=== PATIENT | female | born 1945 | race African-American/Black ===

== ENCOUNTER 2016-07-24 06:51 | Day surgery (SDC) | payer MEDICARE ==
[~2016-07-24] VITALS: Ht 162.6 cm; Wt 70.3 kg
[~2016-07-24 06:51] MED LIST: ATENOLOL25 MG OR; ATENOLOL50 MG PO; BACTRIM DS1 TAB PO; BENAZEPRIL HCL40 MG PO; BENAZEPRIL5 M1 OR; GLYCRON3 MG OR; HYDROCHLOROT25 MG PO; LISINOPRIL20 M1 OR; MAXZIDE-2537.5 MG/TA PO; MEDDOSEPAK OR; METFORMIN1000 MG OR; NAPROSYN500 MG PO; NIFEDIPINE30 MG PO; PROCARDIA XL60 MG OR; SB ASPIRIN325 M1 OR; SIMVASTATIN80 MG OR
[2016-07-24] MEDS ORDERED: ATORVASTATIN (07:01)
[2016-07-24 09:47] VITALS: BP 135/71
== END 2016-07-24 09:47 | disposition home or self-care (01) ==
LOC: ENDO 06:51
PROVIDERS: ATTEND Internal Medicine Gastroenterology
PROC: 0DJD8ZZ Inspection of Lower Intestinal Tract, Via Natural or Artificial Opening Endoscopic (ICD-10-PCS; principal; 2016-07-24)
DX: K57.30 Diverticulosis of large intestine without perforation or abscess without bleeding (principal); R14.0 Abdominal distension (gaseous); K64.4 Residual hemorrhoidal skin tags; K64.8 Other hemorrhoids; K44.9 Diaphragmatic hernia without obstruction or gangrene; K29.70 Gastritis, unspecified, without bleeding; I10 Essential (primary) hypertension; E11.9 Type 2 diabetes mellitus without complications; I25.10 Atherosclerotic heart disease of native coronary artery without angina pectoris; E78.00 Pure hypercholesterolemia, unspecified; Z98.61 Coronary angioplasty status; Z86.010 Personal history of colon polyps

== ENCOUNTER 2016-09-14 02:06 | Emergency (ER) | payer MEDICARE ==
[~2016-09-14] VITALS: Ht 162.6 cm; Wt 73.0 kg
[~2016-09-14 02:06] MED LIST changes: +ATORVASTATIN; +ATORVASTATIN CA40 MG PO; +BENAZEPRIL40 M1 PO; +EC ASPIRIN325 MG PO; +GLYBURID MCR6 MG PO; +METFORMIN500 M2 PO; +NIFEDIPINE ER90 MG PO
[2016-09-14 02:38] LABS: HEMATOCRIT 36.5 % (37.0-47.0); HEMOGLOBIN 11.7 g/dl (12.0-16.0); IMMATURE GRANULOCYTES 0.3 % (0.0-1.0); MEAN CELL VOLUME 89.5 fL CALC (80.0-100.0); MEAN CORPUSCULAR HGB 28.7 pG CALC (26.0-32.0); MEAN CORPUSCULAR HGB CONC 32.1 g/L CALC (32.0-36.0); NEUT# 3.17 thou/uL (2.00-7.15); RED BLOOD COUNT 4.08 mill/uL (4.20-5.60); RED CELL DISTRI WIDTH 15.5 % (11.5-15.5)
[2016-09-14 02:54] LABS: ACT PARTIAL THROMBO TIME 21.5 SECONDS (20.0-32.5); PROTHROMBIN TIME 10.4 SECONDS (9.0-12.5)
[2016-09-14 03:21] LABS: ALBUMIN 3.6 g/dL (3.2-5.0); ALKALINE PHOSPHATASE 57 u/l (38-126); AMYLASE 38 u/l (30-110); ANION GAP 12 (6-22 (CALC)); BILIRUBIN, TOTAL 0.4 mg/dL (0.0-1.4); BUN 23 mg/dL (8-23); BUN/CREATININE RATIO 26 (12-20 (CALC)); CALCIUM 9.4 mg/dL (8.4-10.2); CARBON DIOXIDE 23 mmol/l (22-30); CHLORIDE 110 mmol/l (95-108); CREATININE 0.9 mg/dL (0.5-1.0); ETHYL ALCOHOL 0 mg/dl (0-30); GFR > 60 ML/MIN (>=60 (CALC)); GFR FOR AFR.AMER. > 60 ML/MIN (>=60 (CALC)); GLUCOSE 153 mg/dL (82-115); LIPASE 108 u/l (23-300); POTASSIUM 3.6 mmol/l (3.5-5.1); SGOT/AST 15 u/l (9-36); SGPT/ALT 28 u/l (11-66); SODIUM 141 mmol/l (137-146); TOTAL PROTEIN 6.7 g/dL (6.3-8.2)
[2016-09-14 04:47] VITALS: BP 106/69
== END 2016-09-14 04:49 | disposition short-term general hospital (02) ==
LOC: ED 02:06
PROVIDERS: Emergency Medicine
DX: K62.5 Hemorrhage of anus and rectum (principal); I10 Essential (primary) hypertension; E11.9 Type 2 diabetes mellitus without complications; E78.00 Pure hypercholesterolemia, unspecified; R94.31 Abnormal electrocardiogram [ECG] [EKG]
CPT/HCPCS: S0164

== ENCOUNTER 2016-09-17 06:00 | Emergency (ER) | payer MEDICARE ==
[~2016-09-17] VITALS: Ht 162.6 cm; Wt 70.0 kg
[2016-09-17 06:57] LABS: HEMATOCRIT 26.7 % (37.0-47.0); HEMOGLOBIN 8.6 g/dl (12.0-16.0); IMMATURE GRANULOCYTES 0.5 % (0.0-1.0); MEAN CELL VOLUME 90.2 fL CALC (80.0-100.0); MEAN CORPUSCULAR HGB 29.1 pG CALC (26.0-32.0); MEAN CORPUSCULAR HGB CONC 32.2 g/L CALC (32.0-36.0); NEUT# 5.83 thou/uL (2.00-7.15); RED BLOOD COUNT 2.96 mill/uL (4.20-5.60); RED CELL DISTRI WIDTH 15.7 % (11.5-15.5)
[2016-09-17 07:09] LABS: ALBUMIN 3.8 g/dL (3.2-5.0); ALKALINE PHOSPHATASE 59 u/l (38-126); AMYLASE 42 u/l (30-110); ANION GAP 14 (6-22 (CALC)); BILIRUBIN, TOTAL 0.4 mg/dL (0.0-1.4); BUN 7 mg/dL (8-23); BUN/CREATININE RATIO 10 (12-20 (CALC)); CALCIUM 9.4 mg/dL (8.4-10.2); CARBON DIOXIDE 23 mmol/l (22-30); CHLORIDE 109 mmol/l (95-108); CREATININE 0.8 mg/dL (0.5-1.0); GFR > 60 ML/MIN (>=60 (CALC)); GFR FOR AFR.AMER. > 60 ML/MIN (>=60 (CALC)); GLUCOSE 156 mg/dL (82-115); LIPASE 100 u/l (23-300); POTASSIUM 3.5 mmol/l (3.5-5.1); SGOT/AST 16 u/l (9-36); SGPT/ALT 28 u/l (11-66); SODIUM 142 mmol/l (137-146); TOTAL PROTEIN 6.8 g/dL (6.3-8.2)
[2016-09-17 07:16] LABS: ACT PARTIAL THROMBO TIME 20.1 SECONDS (20.0-32.5); PROTHROMBIN TIME 10.6 SECONDS (9.0-12.5)
[2016-09-17] MEDS ORDERED: TRAVATAN0.0041 OU (07:46)
[2016-09-17 09:50] VITALS: BP 153/79
== END 2016-09-17 09:53 | disposition short-term general hospital (02) ==
LOC: ED 06:00
PROVIDERS: Emergency Medicine
DX: K92.1 Melena (principal); R10.9 Unspecified abdominal pain; I10 Essential (primary) hypertension; E11.9 Type 2 diabetes mellitus without complications; E78.00 Pure hypercholesterolemia, unspecified

== ENCOUNTER 2016-12-08 20:24 | Inpatient (IN) | payer MEDICARE ==
[~2016-12-08] VITALS: Ht 162.6 cm; Wt 68.1 kg
[~2016-12-08 20:24] MED LIST changes: +TRAVATAN0.0041 OU
--- NOTE | 2016-12-08 20:41 | NUR ---
PT ARRIVES BY EMS WITH COMPLAINT OF RAPID HR, OVER 200 PER EMS. HR NOW UP TO 130s. PT IS AMBULATORY TO BR, PROVIDES URINE SPECIMEN. OTHER VSS. NO COMPLAINT OF SHORTNESS OF BREATH, CHEST PAIN, OR DIZZINESS.
[2016-12-08] MEDS ORDERED: ASPIRIN 81 LOW81 MG PO (20:45)
[2016-12-08 21:17] LABS: HEMATOCRIT 30.3 % (37.0-47.0); HEMOGLOBIN 9.4 g/dl (12.0-16.0); IMMATURE GRANULOCYTES 0.4 % (0.0-1.0); MEAN CELL VOLUME 76.7 fL CALC (80.0-100.0); MEAN CORPUSCULAR HGB 23.8 pG CALC (26.0-32.0); NEUT# 7.99 thou/uL (2.00-7.15); RED BLOOD COUNT 3.95 mill/uL (4.20-5.60)
[2016-12-08 21:19] LABS: URINE BILIRUBIN - DIPSTICK NEGATIVE (NEGATIVE); URINE BLOOD DIPSTICK TRACE-INTACT (NEGATIVE); URINE CLARITY CLEAR; URINE COLOR YELLOW; URINE GLUCOSE - DIPSTICK NEGATIVE (NEGATIVE); URINE KETONE NEGATIVE (NEGATIVE); URINE LEUK ESTERASE NEGATIVE (NEGATIVE); URINE NITRITE - DIPSTICK NEGATIVE (Negative); URINE PH 6.5 (4.5-8.0); URINE PROTEIN - DIPSTICK NEGATIVE (NEG-TRACE); URINE SPECIFIC GRAVITY 1.025; URINE UROBILINOGEN - DIPSTICK 0.2 E.U./dL (0.2)
[2016-12-08 21:23] LABS: BARBITURATES NEGATIVE (NEGATIVE); COCAINE NEGATIVE (NEGATIVE); METHADONE NEGATIVE (NEGATIVE); OXCYCODONE NEGATIVE (NEGATIVE); TETRAHYDROCANNABIONOL NEGATIVE (NEGATIVE); TRICYLIC ANTIDEPRESSANTS NEGATIVE (NEGATIVE)
[2016-12-08 21:28] LABS: ACT PARTIAL THROMBO TIME 21.1 SECONDS (20.0-32.5); ALBUMIN 4.2 g/dL (3.2-5.0); ALKALINE PHOSPHATASE 91 u/l (38-126); ANION GAP 16 (6-22 (CALC)); BILIRUBIN, TOTAL 0.7 mg/dL (0.0-1.4); BUN 11 mg/dL (8-23); BUN/CREATININE RATIO 15 (12-20 (CALC)); CALCIUM 9.2 mg/dL (8.4-10.2); CARBON DIOXIDE 21 mmol/l (22-30); CHLORIDE 109 mmol/l (95-108); CREATININE 0.7 mg/dL (0.5-1.0); ETHYL ALCOHOL 0 mg/dl (0-30); GFR > 60 ML/MIN (>=60 (CALC)); GFR FOR AFR.AMER. > 60 ML/MIN (>=60 (CALC)); GLUCOSE 237 mg/dL (82-115); INTERNATIONAL NORMALIZED RATIO 0.9 RATIO (0.7-1.3); POTASSIUM 3.6 mmol/l (3.5-5.1); PROTHROMBIN TIME 10.2 SECONDS (9.0-12.5); SGOT/AST 35 u/l (9-36); SGPT/ALT 36 u/l (11-66); SODIUM 143 mmol/l (137-146); TOTAL PROTEIN 8.1 g/dL (6.3-8.2)
--- NOTE | 2016-12-08 21:29 | NUR ---
PT PROVIDED CARDIZEM 10 MG ORDERED BY EDP FOR HR MID 120s, NOW 115-125.
[2016-12-08 21:39] LABS: MYOGLOBIN 27 ng/mL (0 - 62)
--- NOTE | 2016-12-08 22:04 | NUR ---
PT PROVIDED 20 MG IVP CARDIZEM PER EDP ORDER. HR 118.
--- NOTE | 2016-12-08 22:06 | NUR ---
RECEIVED PT AWAKE AND ALERT. P116 NO C/O CHEST PAIN AT THIS TIME.
--- NOTE | 2016-12-08 23:05 | NUR ---
PT WITH NO C/O PAIN. CALL BESS IN REACH.
--- NOTE | 2016-12-09 00:02 | NUR ---
MED SURG CALLED FOR REPORT, NURSE TO RETURN CALL.
--- NOTE | 2016-12-09 00:16 | NUR ---
REPORT TO [facility]/SURG.
--- NOTE | 2016-12-09 00:20 | NUR ---
PT TO RM 261 WITH ADDY CARRILLO, ON TELE. PT COND STABLE.
--- NOTE | 2016-12-09 00:20 | NUR ---
PATIENT ARRIVED TO THE FLOOR IN STABLE CONDITION VIA STRETCHER ACCOMPANIED BY ED STAFF. PATIENT SETTLED TO BED, WEIGHED, AND ORIENTED TO ROOM CALL SYSATEM. EDUCATE PATIENT ON THE NEED TO CALL FOR ASSISTANCE OOB. PT VERBALISED UNDERSTANDING. BED IN LOW POSITION, CALL LIGHT IN REACH.
--- NOTE | 2016-12-09 01:00 | NUR ---
PT'S BLOOD SUGAR 281. PT'S ASYMPTOMATIC. CALLED DR MORA, PHONE RINGS THEN WENT TO BUSY.
--- NOTE | 2016-12-09 01:30 | NUR ---
CALLED DR MORA, PHONE RANG THEN WENT TO BUSY.
[2016-12-09 04:00] VITALS: BP 120/68
--- NOTE | 2016-12-09 04:00 | NUR ---
NO APPARENT ACUTE CHANGES NOTED IN PATIENT'S CONDITION
--- NOTE | 2016-12-09 06:00 | NUR ---
NOTIFIED DR MORA OF PATIENT'S BLOOD SUGAR. ORDERS RECEIVED TO START LOW DOSE NOVOLOG SLIDING SCALE COVERAGE.
[2016-12-09 07:27] VITALS: BP 110/68
--- NOTE | 2016-12-09 07:27 | NUR ---
REPORT RECEIVED FROM NIGHT NURSE, PT.IN BED WITH LIGHTS OUT, AWOKE TO MY ENTERING THE ROOM. V/S ASSESSED AND PT.MEDICATED FOR BS 210. ASSISTED PT.UP TO RESTROOM. PT.DENIES ANY OTHER NEEDS AND HAS CALL LIGHT WITHIN REACH, INSTRUCTED TO CALL IF ANY NEEDS ARISE
--- NOTE | 2016-12-09 08:24 | NUR ---
PT.UPRIGHT IN BED WATCHING TV., MEDICATED WITH AM MEDICATIONS. NEURO'S INTACT, LUNG SOUNDS ARE CLEAR, NO SKIN ISSUES, STRONG PERIPH PULSES, DENIES ANY PAIN OR DISCOMFORT, PT.LOCX3. PT. ADVISED TO CALL IF SHE NEEDS TO GET UP OR IF ANY NEEDS ARISE.
[2016-12-09 11:32] VITALS: BP 123/73
[2016-12-09] MEDS ORDERED: ATENOLOL50 MG PO (13:21)
[2016-12-09] MEDS ORDERED: ADALAT CC/P30 MG/TA1 PO (13:21)
--- NOTE | 2016-12-09 15:10 | NUR ---
PT.OFF THE FLOOR DISCHARGED, SELF AMBULATORY IN GOOD CONDITION. IV HAS BEEN REMOVED INTACT, SITE APPEARS HEALTHY, MEDICINE WORKER REMOVED.
[2016-12-09 15:39] LABS: CHOLESTEROL HDL RATIO 2.4 (<4.4 (CALC)); MAGNESIUM 1.4 mg/dL (1.6-2.3)
== END 2016-12-09 15:10 | disposition home or self-care (01) | DRG 310 ==
LOC: ED 20:24 → ED-I 21:14 → ED 23:36 → MS2 23:37
PROVIDERS: Emergency Medicine; Nurse Practitioner Family; ADMIT Internal Medicine; ATTEND Internal Medicine
DX: I47.1 Supraventricular tachycardia (principal); E11.9 Type 2 diabetes mellitus without complications; I11.9 Hypertensive heart disease without heart failure; I08.1 Rheumatic disorders of both mitral and tricuspid valves; E78.5 Hyperlipidemia, unspecified; D50.9 Iron deficiency anemia, unspecified; I25.10 Atherosclerotic heart disease of native coronary artery without angina pectoris; K57.30 Diverticulosis of large intestine without perforation or abscess without bleeding; E66.9 Obesity, unspecified; Z68.25 Body mass index [BMI] 25.0-25.9, adult; Z98.61 Coronary angioplasty status; Z79.84 Long term (current) use of oral hypoglycemic drugs
CPT/HCPCS: J1650; J1756

== ENCOUNTER 2017-02-09 19:18 | Emergency (ER) | payer MEDICARE ==
[~2017-02-09] VITALS: Ht 162.6 cm; Wt 66.8 kg
[~2017-02-09 19:18] MED LIST changes: +ADALAT CC/P30 MG/TA1 PO; +ASPIRIN 81 LOW81 MG PO
[2017-02-09] MEDS ORDERED: GLUCOTROL10 MG PO (19:41)
[2017-02-09] MEDS ORDERED: SLOW MAG (19:41)
[2017-02-09] MEDS ORDERED: POT CHLORIDE10 ME5 PO (19:43)
[2017-02-09 19:46] LABS: HEMATOCRIT 41.2 % (37.0-47.0); HEMOGLOBIN 12.5 g/dl (12.0-16.0); IMMATURE GRANULOCYTES 0.2 % (0.0-1.0); MEAN CELL VOLUME 80.8 fL CALC (80.0-100.0); MEAN CORPUSCULAR HGB 24.5 pG CALC (26.0-32.0); MEAN CORPUSCULAR HGB CONC 30.3 g/L CALC (32.0-36.0); NEUT# 3.23 thou/uL (2.00-7.15); RED BLOOD COUNT 5.1 mill/uL (4.20-5.60); RED CELL DISTRI WIDTH 24.7 % (11.5-15.5)
[2017-02-09 19:47] LABS: URINE BILIRUBIN - DIPSTICK NEGATIVE (NEGATIVE); URINE BLOOD DIPSTICK TRACE-LYSED (NEGATIVE); URINE COLOR YELLOW; URINE GLUCOSE - DIPSTICK 100 mg/dL (NEGATIVE); URINE KETONE NEGATIVE (NEGATIVE); URINE LEUK ESTERASE NEGATIVE (NEGATIVE); URINE NITRITE - DIPSTICK NEGATIVE (Negative); URINE PH 7.5 (4.5-8.0); URINE PROTEIN - DIPSTICK NEGATIVE (NEG-TRACE); URINE SPECIFIC GRAVITY 1.025; URINE UROBILINOGEN - DIPSTICK 0.2 E.U./dL (0.2)
[2017-02-09 19:48] LABS: URINE CLARITY CLEAR
[2017-02-09 19:59] LABS: ALBUMIN 4.6 g/dL (3.2-5.0); ALKALINE PHOSPHATASE 100 u/l (38-126); ANION GAP 18 (6-22 (CALC)); BILIRUBIN, TOTAL 0.3 mg/dL (0.0-1.4); BUN 20 mg/dL (8-23); BUN/CREATININE RATIO 25 (12-20 (CALC)); CALCIUM 10.6 mg/dL (8.4-10.2); CARBON DIOXIDE 23 mmol/l (22-30); CHLORIDE 110 mmol/l (95-108); CREATININE 0.8 mg/dL (0.5-1.0); GFR > 60 ML/MIN (>=60 (CALC)); GFR FOR AFR.AMER. > 60 ML/MIN (>=60 (CALC)); GLUCOSE 195 mg/dL (82-115); POTASSIUM 4.6 mmol/l (3.5-5.1); SGOT/AST 113 u/l (9-36); SGPT/ALT 66 u/l (11-66); SODIUM 147 mmol/l (137-146); TOTAL PROTEIN 8.8 g/dL (6.3-8.2)
[2017-02-09 20:03] LABS: INTERNATIONAL NORMALIZED RATIO 0.9 RATIO (0.7-1.3); PROTHROMBIN TIME 10.3 SECONDS (9.0-12.5)
[2017-02-09 20:10] LABS: MYOGLOBIN 32 ng/mL (0 - 62)
[2017-02-09] MEDS ORDERED: TENORMIN PO (20:25)
[2017-02-09 21:32] VITALS: BP 169/85
== END 2017-02-09 21:26 | disposition home or self-care (01) ==
LOC: ED 19:18
PROVIDERS: Emergency Medicine
DX: I47.1 Supraventricular tachycardia (principal); I10 Essential (primary) hypertension; E11.9 Type 2 diabetes mellitus without complications; Z91.14 Patient's other noncompliance with medication regimen

== ENCOUNTER 2017-02-27 09:01 | Emergency (ER) | payer MEDICARE ==
[~2017-02-27] VITALS: Ht 162.6 cm; Wt 68.0 kg
[~2017-02-27 09:01] MED LIST changes: +GLUCOTROL10 MG PO; +POT CHLORIDE10 ME5 PO; +SLOW MAG; +TENORMIN PO
[2017-02-27 09:59] LABS: HEMATOCRIT 38.8 % (37.0-47.0); HEMOGLOBIN 12.3 g/dl (12.0-16.0); IMMATURE GRANULOCYTES 0.2 % (0.0-1.0); MEAN CELL VOLUME 80.8 fL CALC (80.0-100.0); MEAN CORPUSCULAR HGB 25.6 pG CALC (26.0-32.0); MEAN CORPUSCULAR HGB CONC 31.7 g/L CALC (32.0-36.0); NEUT# 3.34 thou/uL (2.00-7.15); RED BLOOD COUNT 4.8 mill/uL (4.20-5.60); RED CELL DISTRI WIDTH 23.3 % (11.5-15.5)
[2017-02-27 10:16] LABS: INFLUENZA A NONE DETECTED (NONE DETECT); INFLUENZA B NONE DETECTED (NONE DETECT)
[2017-02-27 10:23] LABS: ANION GAP 17 (6-22 (CALC)); BUN 12 mg/dL (8-23); BUN/CREATININE RATIO 13 (12-20 (CALC)); CALCIUM 9.8 mg/dL (8.4-10.2); CARBON DIOXIDE 22 mmol/l (22-30); CHLORIDE 104 mmol/l (95-108); CREATININE 0.9 mg/dL (0.5-1.0); GFR > 60 ML/MIN (>=60 (CALC)); GFR FOR AFR.AMER. > 60 ML/MIN (>=60 (CALC)); GLUCOSE 115 mg/dL (82-115); SODIUM 138 mmol/l (137-146)
[2017-02-27] MEDS ORDERED: TAM75CAP PO (10:41)
[2017-02-27] MEDS ORDERED: ZPAK PO (10:41)
[2017-02-27 10:58] VITALS: BP 152/89
== END 2017-02-27 10:59 | disposition home or self-care (01) ==
LOC: ED 09:01
PROVIDERS: Family Medicine
DX: J06.9 Acute upper respiratory infection, unspecified (principal); I10 Essential (primary) hypertension; E11.9 Type 2 diabetes mellitus without complications

== ENCOUNTER 2017-04-05 01:08 | Emergency (ER) | payer MEDICARE ==
[~2017-04-05] VITALS: Ht 162.6 cm; Wt 66.8 kg
[~2017-04-05 01:08] MED LIST changes: +TAM75CAP PO; +ZPAK PO
[2017-04-05 02:19] LABS: HEMATOCRIT 40.4 % (37.0-47.0); HEMOGLOBIN 12.7 g/dl (12.0-16.0); IMMATURE GRANULOCYTES 0.3 % (0.0-1.0); MEAN CELL VOLUME 84.5 fL CALC (80.0-100.0); MEAN CORPUSCULAR HGB 26.6 pG CALC (26.0-32.0); MEAN CORPUSCULAR HGB CONC 31.4 g/L CALC (32.0-36.0); NEUT# 3.71 thou/uL (2.00-7.15); RED BLOOD COUNT 4.78 mill/uL (4.20-5.60); RED CELL DISTRI WIDTH 18.6 % (11.5-15.5)
[2017-04-05 02:42] LABS: ALBUMIN 4.4 g/dL (3.2-5.0); ALKALINE PHOSPHATASE 125 u/l (38-126); ANION GAP 17 (6-22 (CALC)); BILIRUBIN, TOTAL 0.5 mg/dL (0.0-1.4); BUN 16 mg/dL (8-23); BUN/CREATININE RATIO 20 (12-20 (CALC)); CARBON DIOXIDE 25 mmol/l (22-30); CHLORIDE 109 mmol/l (95-108); CREATININE 0.8 mg/dL (0.5-1.0); GFR > 60 ML/MIN (>=60 (CALC)); GFR FOR AFR.AMER. > 60 ML/MIN (>=60 (CALC)); LIPASE 319 u/l (23-300); POTASSIUM 3.7 mmol/l (3.5-5.1); SGOT/AST 26 u/l (9-36); SGPT/ALT 65 u/l (11-66); SODIUM 148 mmol/l (137-146); TOTAL PROTEIN 7.9 g/dL (6.3-8.2)
[2017-04-05 02:53] LABS: MYOGLOBIN 27 ng/mL (0 - 62)
[2017-04-05] MEDS ORDERED: PREVACID30 M1 PO (05:51)
[2017-04-05] MEDS ORDERED: ZOFRAN ODT4 MG PO (05:51)
[2017-04-05] MEDS ORDERED: ULTRAM50 M1 PO (05:51)
[2017-04-05 06:26] VITALS: BP 125/66
== END 2017-04-05 06:26 | disposition home or self-care (01) ==
LOC: ED 01:08
PROVIDERS: Emergency Medicine
DX: K80.80 Other cholelithiasis without obstruction (principal); E11.9 Type 2 diabetes mellitus without complications; I10 Essential (primary) hypertension; R07.9 Chest pain, unspecified

== ENCOUNTER 2018-01-08 10:18 | Emergency (ER) | payer MEDICARE ==
[~2018-01-08] VITALS: Ht 162.6 cm; Wt 68.0 kg
[~2018-01-08 10:18] MED LIST changes: +CLONIDINE0.1 MG PO; +PREVACID30 M1 PO; +ULTRAM50 M1 PO; +ZOFRAN ODT4 MG PO
[2018-01-08] MEDS ORDERED: METFORMIN500 MG PO (10:28)
[2018-01-08] MEDS ORDERED: LIPITOR40 M1 PO (10:28)
[2018-01-08] MEDS ORDERED: NIFEDIPINE60 MG PO (10:28)
[2018-01-08] MEDS ORDERED: MAXZIDE-2537.5 MG/TA PO (10:29)
[2018-01-08] MEDS ORDERED: ATENOLOL50 MG PO (10:29)
[2018-01-08] MEDS ORDERED: MEDDOSEPAK PO (12:07)
[2018-01-08] MEDS ORDERED: TORADOL PO (12:07)
[2018-01-08 12:11] VITALS: BP 119/69
== END 2018-01-08 12:25 | disposition home or self-care (01) ==
LOC: ED 10:18
DX: M25.551 Pain in right hip (principal)

== ENCOUNTER 2018-11-02 17:48 | Emergency (ER) | payer MEDICARE ==
[~2018-11-02] VITALS: Ht 162.6 cm; Wt 70.0 kg
[~2018-11-02 17:48] MED LIST changes: +LIPITOR40 M1 PO; +MEDDOSEPAK PO; +METFORMIN500 MG PO; +NIFEDIPINE60 MG PO; +TORADOL PO
[2018-11-02] MEDS ORDERED: LANTUS100 UNIT/M SC (18:11)
[2018-11-02] MEDS ORDERED: XALATAN0.005 % IR (18:14)
[2018-11-02 19:13] LABS: HEMATOCRIT 38.5 % (37.0-47.0); HEMOGLOBIN 11.8 g/dl (12.0-16.0); IMMATURE GRANULOCYTES 0.3 % (0.0-5.0); MEAN CORPUSCULAR HGB 28.1 pG CALC (26.0-32.0); MEAN CORPUSCULAR HGB CONC 30.6 g/L CALC (32.0-36.0); NEUT# 3.38 thou/uL (2.00-7.15); RED BLOOD COUNT 4.2 mill/uL (4.20-5.60); RED CELL DISTRI WIDTH 17.2 % (11.5-15.5)
[2018-11-02 19:15] LABS: MEAN CELL VOLUME 91.7 fL CALC (80.0-100.0)
[2018-11-02 19:21] LABS: ALBUMIN 3.7 g/dL (3.2-5.0); ALKALINE PHOSPHATASE 68 u/l (38-126); ANION GAP 14 (6-22 (CALC)); BILIRUBIN, TOTAL 0.5 mg/dL (0.0-1.4); BUN 22 mg/dL (8-23); BUN/CREATININE RATIO 23 (12-20 (CALC)); CARBON DIOXIDE 23 mmol/l (22-30); CHLORIDE 106 mmol/l (95-108); GFR 54 ML/MIN (>=60 (CALC)); GFR FOR AFR.AMER. > 60 ML/MIN (>=60 (CALC)); POTASSIUM 4.1 mmol/l (3.5-5.1); SGOT/AST 26 u/l (9-36); SODIUM 139 mmol/l (137-146); TOTAL PROTEIN 7.3 g/dL (6.3-8.2)
[2018-11-02 21:00] VITALS: BP 165/72
== END 2018-11-02 21:30 | disposition home or self-care (01) ==
LOC: ED 17:48
PROVIDERS: Emergency Medicine
DX: E11.649 Type 2 diabetes mellitus with hypoglycemia without coma (principal); I10 Essential (primary) hypertension; Z79.4 Long term (current) use of insulin

== ENCOUNTER 2018-12-02 07:31 | Emergency (ER) | payer MEDICARE ==
[~2018-12-02] VITALS: Ht 162.6 cm; Wt 72.7 kg
[~2018-12-02 07:31] MED LIST changes: +LANTUS100 UNIT/M SC; +XALATAN0.005 % IR
[2018-12-02 08:02] LABS: HEMATOCRIT 36.1 % (37.0-47.0); HEMOGLOBIN 11.4 g/dl (12.0-16.0); MEAN CELL VOLUME 90.9 fL CALC (80.0-100.0); MEAN CORPUSCULAR HGB 28.7 pG CALC (26.0-32.0); MEAN CORPUSCULAR HGB CONC 31.6 g/L CALC (32.0-36.0); NEUT# 3.94 thou/uL (2.00-7.15); RED BLOOD COUNT 3.97 mill/uL (4.20-5.60)
[2018-12-02 08:27] LABS: ANION GAP 13 (6-22 (CALC)); BUN 20 mg/dL (8-23); BUN/CREATININE RATIO 22 (12-20 (CALC)); CARBON DIOXIDE 25 mmol/l (22-30); CHLORIDE 108 mmol/l (95-108); CREATININE 0.9 mg/dL (0.5-1.0); GFR > 60 ML/MIN (>=60 (CALC)); GFR FOR AFR.AMER. > 60 ML/MIN (>=60 (CALC)); POTASSIUM 3.9 mmol/l (3.5-5.1); SODIUM 141 mmol/l (137-146)
[2018-12-02] MEDS ORDERED: LASIX 40 MG TAB40 MG PO ×2 (08:44→09:24)
[2018-12-02] MEDS ORDERED: ASPIRIN ADULT L81 M2 PO (08:48)
[2018-12-02] MEDS ORDERED: NIFEDIPINE ER30 M1 PO (08:49)
[2018-12-02] MEDS ORDERED: METFORMIN500 M2 PO (08:50)
[2018-12-02] MEDS ORDERED: BENAZEPRIL40 M1 PO (08:50)
[2018-12-02] MEDS ORDERED: MAXZIDE-2537.5 MG/TA PO (08:51)
[2018-12-02] MEDS ORDERED: PIOGLITAZONE HC30 MG PO (08:52)
[2018-12-02] MEDS ORDERED: ATENOLOL100 M1 PO (08:53)
[2018-12-02] MEDS ORDERED: ATORVASTATIN CA40 MG PO (08:53)
[2018-12-02] MEDS ORDERED: CLONIDINE0.1 MG PO (08:54)
[2018-12-02 09:14] VITALS: BP 178/84
== END 2018-12-02 09:14 | disposition home or self-care (01) ==
LOC: ED 07:31
PROVIDERS: Family Medicine
DX: I11.0 Hypertensive heart disease with heart failure (principal); I50.9 Heart failure, unspecified; E11.9 Type 2 diabetes mellitus without complications; Z79.4 Long term (current) use of insulin

== ENCOUNTER 2019-10-17 05:51 | Observation (INO) | payer MEDICARE ==
[~2019-10-17] VITALS: Ht 162.6 cm; Wt 74.5 kg
[~2019-10-17 05:51] MED LIST changes: +ASPIRIN ADULT L81 M2 PO; +ATENOLOL100 M1 PO; +LASIX 40 MG TAB40 MG PO; +NIFEDIPINE ER30 M1 PO; +PIOGLITAZONE HC30 MG PO
--- NOTE | 2019-10-17 05:51 | NUR ---
PT TO ROOM 12 BY EMS. NO IV STARTED. BS 120.
--- NOTE | 2019-10-17 06:20 | NUR ---
BLOOD DRAWN AND EKG AND COVID SWAB COMPLETED. IV ATTEMPTED X 3 WITHOUT SUCCESS
[2019-10-17 06:28] LABS: HEMATOCRIT 38.7 % (37.0-47.0); HEMOGLOBIN 11.8 g/dl (12.0-16.0); IMMATURE GRANULOCYTES 0.6 % (0.0-5.0); MEAN CELL VOLUME 90.8 fL CALC (80.0-100.0); MEAN CORPUSCULAR HGB 27.7 pG CALC (26.0-32.0); MEAN CORPUSCULAR HGB CONC 30.5 g/dL CAL (32.0-36.0); NEUT# 5.08 thou/uL (2.00-7.15); RED BLOOD COUNT 4.26 mill/uL (4.20-5.60); RED CELL DISTRI WIDTH 14.6 % (11.5-15.5)
[2019-10-17 06:48] LABS: ALBUMIN 3.9 g/dL (3.2-5.0); ALKALINE PHOSPHATASE 71 u/l (38-126); AMYLASE 64 u/l (30-110); ANION GAP 11 (6-22 (CALC)); BILIRUBIN, TOTAL 0.5 mg/dL (0.0-1.4); BUN 20 mg/dL (8-23); BUN/CREATININE RATIO 21 (12-20 (CALC)); CARBON DIOXIDE 25 mmol/l (22-30); CHLORIDE 107 mmol/l (95-108); CREATININE 0.9 mg/dL (0.5-1.0); GFR > 60 ML/MIN (>=60 (CALC)); GFR FOR AFR.AMER. > 60 ML/MIN (>=60 (CALC)); LIPASE 174 u/l (23-300); POTASSIUM 4.2 mmol/l (3.5-5.1); SGOT/AST 25 u/l (9-36); SODIUM 138 mmol/l (137-146); TOTAL PROTEIN 7.4 g/dL (6.3-8.2)
--- NOTE | 2019-10-17 06:51 | NUR ---
REPORT TO CRYSTAL. IV ATTEMPTS UNSUCCESSFUL. DR AWARE. WILL WAIT ON CHEMISTRY TO DECIDE ON FLUIDS. PT GETTING UP TO BR TO OBTAIN URINE SAMPLE.
--- NOTE | 2019-10-17 06:55 | NUR ---
RECIEVED CARE OF PATIENT. PT AO X 3. SKIN PINK WARM AND DRY. ASSISTED TO COMMODE. URINE SAMPLE OBTAINED AND SENT TO LAB. PTS AT BEDSIDE
[2019-10-17 07:00] LABS: MYOGLOBIN 32 ng/mL (0 - 62)
[2019-10-17 07:09] LABS: URINE BILIRUBIN - DIPSTICK NEGATIVE (NEGATIVE); URINE BLOOD DIPSTICK NEGATIVE (NEGATIVE); URINE COLOR YELLOW; URINE GLUCOSE - DIPSTICK NEGATIVE (NEGATIVE); URINE KETONE NEGATIVE (NEGATIVE); URINE LEUK ESTERASE SMALL (NEGATIVE); URINE NITRITE - DIPSTICK NEGATIVE (Negative); URINE PH 7.5 (4.5-8.0); URINE PROTEIN - DIPSTICK NEGATIVE (NEG-TRACE); URINE UROBILINOGEN - DIPSTICK 0.2 E.U./dL (0.2)
[2019-10-17 07:18] LABS: URINE BACTERIA FEW hpf; URINE SQUAMOUS EPITHELIAL CELL FEW EPI/hpf (0-FEW)
--- NOTE | 2019-10-17 07:20 | NUR ---
22G IV STARTED IN LEFT HAND. PT MEDICATED FOR NAUSEA. IV FLUIDS INFUSING
--- NOTE | 2019-10-17 07:42 | NUR ---
REPORT GIVEN TO ARACELI DALYPATTERNMAKER PLASTER AND PLASTIC
--- NOTE | 2019-10-17 08:05 | NUR ---
PT TRANSPORTED VIA STRETCHER TELEMETRY IN PLACE TO [facility]
[2019-10-17 08:23] VITALS: BP 108/63
--- NOTE | 2019-10-17 10:17 | NUR ---
PT ARRIVES TO ROOM 260 VIA WHEELCHAIR FROM ER ACCOMPANIED BY CRYSTAL DALY. PT IS ALERT, ORIENTED X 3, AMBULATORY IN ROOM. PT ORIENTED TO CALL BESS, BED CONTROLS. BSC AT BEDSIDE. NO DISTRESS, NO COMPLAINT. MEAL TRAY PROVIDED UPON ARRIVAL.
[2019-10-17 10:50] VITALS: BP 126/75
[2019-10-17 14:40] VITALS: BP 124/65
--- NOTE | 2019-10-17 16:13 | NUR ---
PT SEEN AT REST IN THE BED WITHOUT COMPLAINT OR EVIDENCE OF DISTRESS. PT IS AMBULATORY IN ROOM WITH STEADY GAIT.
[2019-10-17 19:34] VITALS: BP 127/74
--- NOTE | 2019-10-17 19:34 | NUR ---
PT. RESTING IN BED WITH NO DISTRESS NOTED; DENIES NEEDS/PAIN. UPDATED ON POC; VERBALIZES UNDERSTANDING. EDUCATED ON MEDS AND GIVEN PER EMAR. PT. REPORTS NO MORE BM'S SINCE THE ONE AT HOME THIS AM. ASSESSMENT COMPLETED.GINA JANE TO BLE. IV SITE PATENT AND ORDERED IVF INFUSING WELL. ENCOURAGED TO CALL FOR ANY NEEDS. TELEMETRY IN PLACE. CALL LIGHT IS IN REACH.
[2019-10-17 23:15] VITALS: BP 154/87
--- NOTE | 2019-10-17 23:15 | NUR ---
VSS. NO DISTRESS NOTED;DENIES NEEDS/PAIN. ENCOURAGED TO CALL FOR ANY NEEDS. CALL LIGHT IS IN REACH.
--- NOTE | 2019-10-18 03:00 | NUR ---
PT. RESTING IN BED WITH NO DISTRESS NOTED; DENIES NEEDS/PAIN. CALL LIGHT IS IN REACH. WILL CONTINUE TO MONITOR.
[2019-10-18 03:31] VITALS: BP 155/96
[2019-10-18 07:20] VITALS: BP 154/93
--- NOTE | 2019-10-18 07:20 | NUR ---
PT LAYING IN BED. A&O X3. NO DISTRESS NOTED. PT DENIES ANY PAIN AT THIS TIME. NO OTHER NEEDS. ASSESSMENT COMPLETED. DISCUSSED POC. CALL LIGHT IN REACH. CONTINUE TO MONITOR.
[2019-10-18 08:38] LABS: HEMATOCRIT 40.9 % (37.0-47.0); HEMOGLOBIN 12.5 g/dl (12.0-16.0); MEAN CELL VOLUME 90.5 fL CALC (80.0-100.0); MEAN CORPUSCULAR HGB 27.7 pG CALC (26.0-32.0); MEAN CORPUSCULAR HGB CONC 30.6 g/dL CAL (32.0-36.0); RED BLOOD COUNT 4.52 mill/uL (4.20-5.60); RED CELL DISTRI WIDTH 14.7 % (11.5-15.5)
[2019-10-18 08:46] LABS: BUN 15 mg/dL (8-23); BUN/CREATININE RATIO 18 (12-20 (CALC)); CARBON DIOXIDE 24 mmol/l (22-30); CHLORIDE 107 mmol/l (95-108); CREATININE 0.8 mg/dL (0.5-1.0); GFR > 60 ML/MIN (>=60 (CALC)); GFR FOR AFR.AMER. > 60 ML/MIN (>=60 (CALC)); MAGNESIUM 1.5 mg/dL (1.6-2.3); POTASSIUM 3.8 mmol/l (3.5-5.1); SODIUM 138 mmol/l (137-146)
[2019-10-18 09:41] LABS: ANION GAP 11 (6-22 (CALC))
[2019-10-18] MEDS ORDERED: KEFLEX500 MG PO (09:47)
[2019-10-18 10:21] LABS: CALCULATED LDLCHOLESTEROL 54 mg/dL (62-129 (CALC)); CHOLESTEROL HDL RATIO 2.5 (<4.4 (CALC)); HDL CHOLESTEROL 51 mg/dL (>=40); TOTAL CHOLESTEROL 125 mg/dl (0-199); TOTAL TRIGLYCERIDES 99 mg/dl (30-149); VLDL CHOLESTROL 20 mg/dl (0-48 (CALC))
[2019-10-18 10:30] VITALS: BP 162/88
--- NOTE | 2019-10-18 11:48 | NUR ---
Discharge instructions given. Patient verbalizes understanding of same. Discharged in stable condition via Wheelchair to Home accompanied by this automobile service writer and family member. All belongings sent with pt.
== END 2019-10-18 11:40 | disposition home or self-care (01) ==
LOC: ED 05:51 → ED-I 07:20 → ED 07:27 → MS2 07:38
PROVIDERS: Emergency Medicine; Nurse Practitioner; ADMIT Internal Medicine; ATTEND Internal Medicine
DX: R94.31 Abnormal electrocardiogram [ECG] [EKG] (principal); R61 Generalized hyperhidrosis; N39.0 Urinary tract infection, site not specified; K59.00 Constipation, unspecified; I10 Essential (primary) hypertension; E11.9 Type 2 diabetes mellitus without complications; E78.5 Hyperlipidemia, unspecified; B96.20 Unspecified Escherichia coli [E. coli] as the cause of diseases classified elsewhere; Z98.61 Coronary angioplasty status; Z79.84 Long term (current) use of oral hypoglycemic drugs; Z20.828 Contact with and (suspected) exposure to other viral communicable diseases
CPT/HCPCS: G0378; J1650

== ENCOUNTER 2020-03-16 17:43 | Emergency (ER) | payer MEDICARE ==
[~2020-03-16] VITALS: Ht 162.6 cm; Wt 70.9 kg
[~2020-03-16 17:43] MED LIST changes: +KEFLEX500 MG PO
[2020-03-16 19:15] LABS: HEMATOCRIT 43.2 % (37.0-47.0); HEMOGLOBIN 13.9 g/dl (12.0-16.0); IMMATURE GRANULOCYTES 0.4 % (0.0-5.0); MEAN CELL VOLUME 87.4 fL CALC (80.0-100.0); MEAN CORPUSCULAR HGB 28.1 pG CALC (26.0-32.0); MEAN CORPUSCULAR HGB CONC 32.2 g/dL CAL (32.0-36.0); NEUT# 3.44 thou/uL (2.00-7.15); RED BLOOD COUNT 4.94 mill/uL (4.20-5.60); RED CELL DISTRI WIDTH 14.4 % (11.5-15.5)
[2020-03-16 19:28] LABS: PROTHROMBIN TIME 10.2 SECONDS (9.0-12.5)
[2020-03-16 19:32] LABS: ALBUMIN 4.1 g/dL (3.2-5.0); BILIRUBIN, TOTAL 0.7 mg/dL (0.0-1.4); CREATININE 1.4 mg/dL (0.5-1.0); TOTAL PROTEIN 8.4 g/dL (6.3-8.2)
[2020-03-16 19:37] LABS: POTASSIUM 3.5 mmol/l (3.5-5.1)
[2020-03-16 19:55] LABS: D-DIMER 2.16 mg/L (0.19-0.60)
[2020-03-16] MEDS ORDERED: TRAMADOL HYDROC50 MG PO (22:26)
[2020-03-16 23:45] VITALS: BP 140/79
--- NOTE | 2020-03-17 10:31 | NUR ---
RECEIVED CONSULT FOR BAMLANIVIMAB. CALLED PT @ 0800 AND 1030, LM. WILL TRY TO SCHEDULE PT FOR SATURDAY 03/18
--- NOTE | 2020-03-18 13:58 | NUR ---
HAVE YET TO HEAR BACK FROM PT RE: RAMYA
== END 2020-03-16 23:45 | disposition home or self-care (01) ==
LOC: ED 17:43
DX: L29.9 Pruritus, unspecified (principal); T40.425A Adverse effect of tramadol, initial encounter; U07.1 COVID-19; I10 Essential (primary) hypertension; E11.9 Type 2 diabetes mellitus without complications; E78.00 Pure hypercholesterolemia, unspecified; Z79.84 Long term (current) use of oral hypoglycemic drugs

== ENCOUNTER 2020-03-18 23:35 | Emergency (ER) | payer MEDICARE ==
[~2020-03-18] VITALS: Ht 162.6 cm; Wt 71.0 kg
[~2020-03-18 23:35] MED LIST changes: +TRAMADOL HYDROC50 MG PO
[2020-03-19] MEDS ORDERED: BENADRYL 50MG C50 MG PO (00:15)
[2020-03-19 00:26] VITALS: BP 102/64
== END 2020-03-19 00:35 | disposition home or self-care (01) ==
LOC: ED 23:35
DX: L29.9 Pruritus, unspecified (principal); T40.425A Adverse effect of tramadol, initial encounter; I10 Essential (primary) hypertension; E11.9 Type 2 diabetes mellitus without complications; E78.00 Pure hypercholesterolemia, unspecified; Z79.84 Long term (current) use of oral hypoglycemic drugs

== ENCOUNTER 2020-09-10 07:44 | Observation (INO) | payer MEDICARE ==
[~2020-09-10] VITALS: Ht 162.6 cm; Wt 69.0 kg
[2020-09-10] VITALS (8 sets, daily range): BP systolic 130–167; BP diastolic 77–98
[~2020-09-10 07:44] MED LIST changes: +BENADRYL 50MG C50 MG PO
--- NOTE | 2020-09-10 07:44 | NUR ---
PT TO ROOM VIA EMS; DEFIB PADS IN PLACE; PT AOX3; STATED CP HAS RESOLVED;
[2020-09-10] MEDS ORDERED: MAGNESIUM 250 M1 TAB (08:00)
[2020-09-10 08:23] LABS: HEMATOCRIT 41.2 % (37.0-47.0); HEMOGLOBIN 13.2 g/dl (12.0-16.0); IMMATURE GRANULOCYTES 0.4 % (0.0-5.0); MEAN CORPUSCULAR HGB 28.8 pG CALC (26.0-32.0); NEUT# 4.19 thou/uL (2.00-7.15); RED BLOOD COUNT 4.58 mill/uL (4.20-5.60); RED CELL DISTRI WIDTH 14.3 % (11.5-15.5)
[2020-09-10 08:36] LABS: ACT PARTIAL THROMBO TIME 22.4 SECONDS (20.0-32.5); PROTHROMBIN TIME 10.1 SECONDS (9.0-12.5)
[2020-09-10 08:38] LABS: ALBUMIN 4.2 g/dL (3.2-5.0); ALKALINE PHOSPHATASE 96 u/l (38-126); BUN 30 mg/dL (8-23); BUN/CREATININE RATIO 23 (12-20 (CALC)); CHLORIDE 102 mmol/l (95-108); CREATININE 1.3 mg/dL (0.5-1.0); GFR 40 ML/MIN (>=60 (CALC)); GFR FOR AFR.AMER. 48 ML/MIN (>=60 (CALC)); LIPASE 227 u/l (23-300); POTASSIUM 3.9 mmol/l (3.5-5.1); SGOT/AST 20 u/l (9-36); SODIUM 136 mmol/l (137-146); TOTAL PROTEIN 8.4 g/dL (6.3-8.2)
[2020-09-10 08:39] LABS: ANION GAP 17 (6-22 (CALC)); BILIRUBIN, TOTAL 0.5 mg/dL (0.0-1.4); CARBON DIOXIDE 21 mmol/l (22-30)
--- NOTE | 2020-09-10 09:00 | NUR ---
PT RESTING, NO CP OR SOB
--- NOTE | 2020-09-10 09:55 | NUR ---
PT RESTING QUIETLY, CALL LIGHT IN REACH AND VSS
[2020-09-10] MEDS ORDERED: XALATAN0.005 % OU (11:12)
[2020-09-10] MEDS ORDERED: NIFEDIPINE60 M1 PO (11:12)
--- NOTE | 2020-09-10 12:01 | NUR ---
PT IS SITTING QUIETLY IN BED, NO COMPLAINTS
[2020-09-10] MEDS ORDERED: LANTUS SOL100 UNIT/M SC (12:16)
--- NOTE | 2020-09-10 12:57 | NUR ---
CALL RECEIVED FROM LAB FOR CRITICAL TROPONIN VALUE @ 0.329 LILIBETH LOAN COORDINATOR NOTIFIED, ADVISED WILL COME AND EVAL PT. NO NEW ORDERS RECEIVED.
--- NOTE | 2020-09-10 13:06 | NUR ---
NO COMPLAINTS OF CHEST PAIN, PT RELAXED AND COMFORTABLE
--- NOTE | 2020-09-10 14:30 | NUR ---
PT SITTING IN BED RESTING, NO COMPLAINTS, GIVEN BOTTLE OF WATER BUT REFUSING FOOD AT THE MOMENT
--- NOTE | 2020-09-10 16:00 | NUR ---
PT ON REST ROOM MAID, VSS, NO COMPLAINTS
--- NOTE | 2020-09-10 17:49 | NUR ---
REPORT REC FROM Jenni GRANGER RN
--- NOTE | 2020-09-10 17:52 | NUR ---
GAVE REPORT TO ANN RN, PT AOX3, NO COMPLAINTS, VSS AND NAD PT PLACED ON MONITOR TO TAKE TO FLOOR
--- NOTE | 2020-09-10 18:19 | NUR ---
PT ARRIVED VIA STRETCHER ACCOMPANIED BY Pooja DAVIS RN. PT A&O X4. NO DISTRESS NOTED. PT DENIES ANY CP AT THIS TIME. CURRENTLY SR ON MONITOR WITH A RATE OF 69. #22 LW WITH IVF INFUSING WITH NS @75 ML/HR. ORIENTED PT TO ROOM, CALL LIGHT LEFT WITHIN REACH.
--- NOTE | 2020-09-10 18:20 | NUR ---
Admission Note Report Given to: ADDY CLARK Transported by: Wheelchair X Stretcher Transported with: X Nurse Transporter X Patent IV O2 X Chicken Raiser Location: X ICU MS2
--- NOTE | 2020-09-10 20:00 | NUR ---
awake. denies distress. lunchroom monitor shows sinus rhythm. #22 lt wrist. ns infusing @ 75cchr. history obtained per pt & old cahrt. oriented to room. fall precautions cont. voided per bsc. beth well.
--- NOTE | 2020-09-10 22:00 | NUR ---
eyes closed. no distress. traffic monitor specialist shows sinus rhythm hr 68.
[2020-09-11] VITALS (15 sets, daily range): BP systolic 114–168; BP diastolic 63–98
--- NOTE | 2020-09-11 00:01 | NUR ---
eyes closed. no distress. studio set up worker shows sinus rhythm hr 70.
--- NOTE | 2020-09-11 02:00 | NUR ---
resting quietly. resps even & unlabored. no apparent distress. ivf infusing well.
--- NOTE | 2020-09-11 04:15 | NUR ---
lab here. blood drawn.
--- NOTE | 2020-09-11 05:54 | NUR ---
eyes closed. no distress. night monitor shows sinus rhythm hr 61.
[2020-09-11 06:20] LABS: HEMATOCRIT 40.1 % (37.0-47.0); HEMOGLOBIN 12.6 g/dl (12.0-16.0); MEAN CELL VOLUME 90.5 fL CALC (80.0-100.0); MEAN CORPUSCULAR HGB 28.4 pG CALC (26.0-32.0); MEAN CORPUSCULAR HGB CONC 31.4 g/dL CAL (32.0-36.0); RED BLOOD COUNT 4.43 mill/uL (4.20-5.60); RED CELL DISTRI WIDTH 14.4 % (11.5-15.5)
[2020-09-11 06:59] LABS: ANION GAP 11 (6-22 (CALC)); BUN 23 mg/dL (8-23); BUN/CREATININE RATIO 23 (12-20 (CALC)); CALCULATED LDLCHOLESTEROL 67 mg/dL (62-129 (CALC)); CARBON DIOXIDE 25 mmol/l (22-30); CHLORIDE 105 mmol/l (95-108); CHOLESTEROL HDL RATIO 2.9 (<4.4 (CALC)); GFR 54 ML/MIN (>=60 (CALC)); GFR FOR AFR.AMER. > 60 ML/MIN (>=60 (CALC)); HDL CHOLESTEROL 47 mg/dL (>=40); MAGNESIUM 1.7 mg/dL (1.6-2.3); POTASSIUM 4.3 mmol/l (3.5-5.1); SODIUM 137 mmol/l (137-146); TOTAL CHOLESTEROL 137 mg/dl (0-199); TOTAL TRIGLYCERIDES 117 mg/dl (30-149); VLDL CHOLESTROL 23 mg/dl (0-48 (CALC))
--- NOTE | 2020-09-11 19:57 | NUR ---
PT ARRIVED TO MED SURG UNIT VIA WC ACCOMPANIED BY ED NURSE. PT APPEARS TO BE IN STABLE CONDITION. SHE REPORTS FEELING WELL, DENIES CP/SOB/PALPATATIONS AT THIS TIME. PT DOES NOT HAVE A CLAMP CARRIER OPERATOR IN PLACE, ORDERS CHECKED AND ED NOTIFIED OF NEED FOR CLAMP CARRIER OPERATOR. NOTIFIED RECIEVING WITH ROOM NUMBER AND PT ARRIVAL TIME TO MS FLOOR.
--- NOTE | 2020-09-11 19:58 | NUR ---
PATIENT WAS TRANSFERRED VIA WHEELCHAIR TO ROOM 264 AT [facility]. ALL PT BELONGINGS TAKEN WITH PT. PATIENT DENIES CHEST PAIN, HAS NO OTHER COMPLAINTS. SR ON TELEMETRY, BP WNL. 97% ON RA, NO SOB NOTED.
--- NOTE | 2020-09-11 20:20 | NUR ---
WOLF HUNTER VISITED ED TO OBTAIN TELEMETRY, PT PLACED ON TELE AT THIS TIME.
--- NOTE | 2020-09-11 21:00 | NUR ---
PT MEDICATED ORDERS PROVIDE AND SNACK PROVIDED. IVF STARTED AT THIS TIME, ORDERS PROVIDE FOR.
[2020-09-12] VITALS: BP 120/79
--- NOTE | 2020-09-12 02:35 | NUR ---
Pt appears to be sleeping, no s/o distress noted at this time. Resp appear to be reg and non-labored.
[2020-09-12 04:15] VITALS: BP 109/71
[2020-09-12 05:59] LABS: ANION GAP 11 (6-22 (CALC)); BUN 20 mg/dL (8-23); BUN/CREATININE RATIO 21 (12-20 (CALC)); CARBON DIOXIDE 24 mmol/l (22-30); CHLORIDE 107 mmol/l (95-108); CREATININE 0.9 mg/dL (0.5-1.0); GFR > 60 ML/MIN (>=60 (CALC)); GFR FOR AFR.AMER. > 60 ML/MIN (>=60 (CALC)); MAGNESIUM 1.5 mg/dL (1.6-2.3); POTASSIUM 3.9 mmol/l (3.5-5.1); SODIUM 138 mmol/l (137-146)
--- NOTE | 2020-09-12 07:00 | NUR ---
PT REPORT RECEIVED FROM NIGHT NURSENESSA
--- NOTE | 2020-09-12 08:00 | NUR ---
PT WAS FOUND RESTING IN BED IN SEMI-WEEMS'S POSITION;PT IS A&OX3;VS AND ASSESSMENT WERE COMPLETED;PT HAS NO REPORTS OF PAIN AT THIS TIME;HEART SOUNDS ARE REGULAR IN RATE AND RHYTHM;TELE IS IN PLACE;LUNG SOUNDS ARE CLEAR;RESPIRATIONS ARE EVEN AND UNLABORED ON RA;ABDOMEN IS SOFT WITH ACTIVE BOWEL SOUNDS NOTED IN ALL QUADRANTS;#22G IV IN LW IS RUNNING NS@75ML/HR;IV SITE IS PATENT AND APPEARS FREE OF COMPLICATIONS AT THIS TIME;SAFETY PRECAUTIONS IN PLACE;CALL LIGHT WITHIN REACH;PT ENCOURAGED TO CALL WITH ANY NEEDS OR CONCERNS;WILL CONTINUE TO MONITOR.
[2020-09-12 08:56] VITALS: BP 125/77
--- NOTE | 2020-09-12 09:10 | NUR ---
AND LILIBETH MATTHEWS AT BEDSIDE DISCUSSING POC WITH PT
[2020-09-12 10:00] VITALS: BP 125/77
--- NOTE | 2020-09-12 12:00 | NUR ---
PT WAS FOUND RESTING IN BED EATING LUNCH;PT HAS NO COMPLAINTS OF PAIN AT THIS TIME;TELE IS IN PLACE;SAFETY PRECAUTIONS IN PLACE;CALL LIGHT WITHIN REACH;WILL CONTINUE TO MONITOR.
--- NOTE | 2020-09-12 15:30 | NUR ---
Discharge instructions given. Patient verbalizes understanding of same. Discharged in stable condition via Wheelchair to Home with family. All belongings sent with pt. DISCHARGE PACKET WAS GIVEN TO PT;DISCHARGE INSTRUCTIONS AND MEDICATIONS WERE EXPLAINED TO PT;PT EXPRESSED UNDERSTANDING AND HAD NO FURTHER QUESTIONS;SIGNATURE WAS OBTAINED;TELE WAS REMOVED;IV WAS REMOVED WITH NO COMPLICATIONS AND CATHETER INTACT; PT WAS TRANSPORTED TO [facility] VIA IN STABLE CONDITION ACCOMPANIED BY STAFF;ALL PT BELONGINGS WERE SENT WITH PT;PT WILL BE TRANSPORTED HOME WITH FAMILY;
== END 2020-09-12 15:30 | disposition home or self-care (01) ==
LOC: ED 07:44 → ED-I 09:50 → ED 10:01 → ICU 10:02 → ED-I 10:02 → ICU 16:56 → MS2 09-11 19:57
PROVIDERS: Nurse Practitioner; ADMIT Internal Medicine; ATTEND Internal Medicine
DX: I47.1 Supraventricular tachycardia (principal); I24.8 Other forms of acute ischemic heart disease; N17.9 Acute kidney failure, unspecified; I10 Essential (primary) hypertension; E11.9 Type 2 diabetes mellitus without complications; I25.10 Atherosclerotic heart disease of native coronary artery without angina pectoris; E78.5 Hyperlipidemia, unspecified; Z79.4 Long term (current) use of insulin; Z20.822 Contact with and (suspected) exposure to COVID-19
CPT/HCPCS: G0378; J1650; J3475

== ENCOUNTER 2020-09-16 20:26 | Observation (INO) | payer MEDICARE ==
[~2020-09-16] VITALS: Ht 162.6 cm; Wt 68.0 kg
[~2020-09-16 20:26] MED LIST changes: +LANTUS SOL100 UNIT/M SC; +MAGNESIUM 250 M1 TAB; +NIFEDIPINE60 M1 PO; +XALATAN0.005 % OU
[2020-09-16 21:08] LABS: HEMATOCRIT 42.2 % (37.0-47.0); HEMOGLOBIN 13.3 g/dl (12.0-16.0); IMMATURE GRANULOCYTES 0.2 % (0.0-5.0); MEAN CELL VOLUME 90.8 fL CALC (80.0-100.0); MEAN CORPUSCULAR HGB 28.6 pG CALC (26.0-32.0); MEAN CORPUSCULAR HGB CONC 31.5 g/dL CAL (32.0-36.0); NEUT# 5.01 thou/uL (2.00-7.15); RED BLOOD COUNT 4.65 mill/uL (4.20-5.60)
[2020-09-16 21:26] LABS: ALBUMIN 4.5 g/dL (3.2-5.0); ALKALINE PHOSPHATASE 91 u/l (38-126); BUN 23 mg/dL (8-23); BUN/CREATININE RATIO 19 (12-20 (CALC)); CARBON DIOXIDE 23 mmol/l (22-30); CHLORIDE 106 mmol/l (95-108); CREATININE 1.2 mg/dL (0.5-1.0); GFR 44 ML/MIN (>=60 (CALC)); GFR FOR AFR.AMER. 53 ML/MIN (>=60 (CALC)); SGOT/AST 25 u/l (9-36); SODIUM 142 mmol/l (137-146)
[2020-09-16 21:32] LABS: ANION GAP 16 (6-22 (CALC)); BILIRUBIN, TOTAL 0.2 mg/dL (0.0-1.4); POTASSIUM 3.1 mmol/l (3.5-5.1)
[2020-09-16 21:37] LABS: MYOGLOBIN 24 ng/mL (0 - 62)
[2020-09-16 22:41] LABS: URINE BILIRUBIN - DIPSTICK NEGATIVE (NEGATIVE); URINE BLOOD DIPSTICK NEGATIVE (NEGATIVE); URINE COLOR YELLOW; URINE GLUCOSE - DIPSTICK NEGATIVE (NEGATIVE); URINE KETONE NEGATIVE (NEGATIVE); URINE LEUK ESTERASE SMALL (NEGATIVE); URINE NITRITE - DIPSTICK NEGATIVE (Negative); URINE PROTEIN - DIPSTICK NEGATIVE (NEG-TRACE); URINE SPECIFIC GRAVITY 1.015; URINE UROBILINOGEN - DIPSTICK 0.2 E.U./dL (0.2)
[2020-09-16 22:48] LABS: URINE SQUAMOUS EPITHELIAL CELL MANY EPI/hpf (0-FEW)
[2020-09-16 23:40] VITALS: BP 142/84
[2020-09-17 04:00] VITALS: BP 134/80
[2020-09-17 07:57] VITALS: BP 153/70
[2020-09-17 09:41] LABS: ANION GAP 13 (6-22 (CALC)); BUN 21 mg/dL (8-23); BUN/CREATININE RATIO 23 (12-20 (CALC)); CARBON DIOXIDE 21 mmol/l (22-30); CHLORIDE 108 mmol/l (95-108); CREATININE 0.9 mg/dL (0.5-1.0); GFR > 60 ML/MIN (>=60 (CALC)); GFR FOR AFR.AMER. > 60 ML/MIN (>=60 (CALC)); MAGNESIUM 1.7 mg/dL (1.6-2.3); POTASSIUM 3.9 mmol/l (3.5-5.1); SODIUM 138 mmol/l (137-146)
[2020-09-17 11:33] VITALS: BP 176/100
[2020-09-17 12:45] VITALS: BP 150/85
[2020-12-19] MEDS ORDERED: KEFLEX500 MG PO (08:43)
[2020-12-19] MEDS ORDERED: ROBITUSSIN AC10 ML PO (08:43)
== END 2020-09-17 15:22 | disposition home or self-care (01) ==
LOC: ED 20:26 → ED-I 22:33 → ED 23:16 → MS2 23:16
PROVIDERS: Emergency Medicine; Nurse Practitioner; ADMIT Hospitalist; ATTEND Hospitalist
DX: R07.9 Chest pain, unspecified (principal); N17.9 Acute kidney failure, unspecified; I10 Essential (primary) hypertension; E11.9 Type 2 diabetes mellitus without complications; I25.10 Atherosclerotic heart disease of native coronary artery without angina pectoris; E78.5 Hyperlipidemia, unspecified; Z98.61 Coronary angioplasty status; Z79.4 Long term (current) use of insulin; Z20.822 Contact with and (suspected) exposure to COVID-19
CPT/HCPCS: G0378

== ENCOUNTER 2021-09-10 12:45 | Observation (INO) | payer MEDICARE ==
[~2021-09-10] VITALS: Ht 162.6 cm; Wt 65.0 kg
[2021-09-10] VITALS (22 sets, daily range): BP systolic 129–171; BP diastolic 71–94
[~2021-09-10 12:45] MED LIST changes: +ROBITUSSIN AC10 ML PO
[2021-09-10 13:20] LABS: HEMATOCRIT 40.9 % (37.0-47.0); HEMOGLOBIN 12.8 g/dl (12.0-16.0); IMMATURE GRANULOCYTES 0.2 % (0.0-5.0); MEAN CELL VOLUME 90.7 fL CALC (80.0-100.0); MEAN CORPUSCULAR HGB 28.4 pG CALC (26.0-32.0); MEAN CORPUSCULAR HGB CONC 31.3 g/dL CAL (32.0-36.0); NEUT# 2.21 thou/uL (2.00-7.15); RED BLOOD COUNT 4.51 mill/uL (4.20-5.60); RED CELL DISTRI WIDTH 15.4 % (11.5-15.5)
[2021-09-10 13:33] LABS: ALBUMIN 3.9 g/dL (3.2-5.0); ALKALINE PHOSPHATASE 73 u/l (38-126); ANION GAP 11 (6-22 (CALC)); BILIRUBIN, TOTAL 0.8 mg/dL (0.0-1.4); BUN 14 mg/dL (8-23); BUN/CREATININE RATIO 13 (12-20 (CALC)); CARBON DIOXIDE 25 mmol/l (22-30); CHLORIDE 104 mmol/l (95-108); CREATININE 1.1 mg/dL (0.5-1.0); GFR FOR AFR.AMER. 58 ML/MIN (>=60 (CALC)); GFR OTHER RACES 48 ML/MIN (>=60 (CALC)); POTASSIUM 3.3 mmol/l (3.5-5.1); SGOT/AST 24 u/l (9-36); SODIUM 137 mmol/l (137-146)
[2021-09-10] MEDS ORDERED: METFORMIN HCL1000 MG PO (15:05)
[2021-09-10] MEDS ORDERED: JARDIANCE25 MG PO (15:06)
[2021-09-10] MEDS ORDERED: TIMOLOL MALEATE0.5 % OU (15:08)
[2021-09-10] MEDS ORDERED: LATANOPROST0.005 % OU (15:08)
[2021-09-11] VITALS: BP 129/71
[2021-09-11 03:51] VITALS: BP 140/75
[2021-09-11 04:00] VITALS: BP 140/75
[2021-09-11 06:16] LABS: HEMATOCRIT 36.9 % (37.0-47.0); HEMOGLOBIN 11.7 g/dl (12.0-16.0); IMMATURE GRANULOCYTES 0.2 % (0.0-5.0); MEAN CELL VOLUME 91.6 fL CALC (80.0-100.0); MEAN CORPUSCULAR HGB CONC 31.7 g/dL CAL (32.0-36.0); NEUT# 1.81 thou/uL (2.00-7.15); RED BLOOD COUNT 4.03 mill/uL (4.20-5.60); RED CELL DISTRI WIDTH 15.4 % (11.5-15.5)
[2021-09-11 06:36] LABS: ANION GAP 11 (6-22 (CALC)); BUN 17 mg/dL (8-23); BUN/CREATININE RATIO 20 (12-20 (CALC)); CARBON DIOXIDE 23 mmol/l (22-30); CHLORIDE 107 mmol/l (95-108); CREATININE 0.8 mg/dL (0.5-1.0); GFR FOR AFR.AMER. > 60 ML/MIN (>=60 (CALC)); GFR OTHER RACES > 60 ML/MIN (>=60 (CALC)); MAGNESIUM 1.9 mg/dL (1.6-2.3); POTASSIUM 3.5 mmol/l (3.5-5.1); SODIUM 137 mmol/l (137-146)
[2021-09-11 06:50] VITALS: BP 128/68
[2021-09-11 10:46] VITALS: BP 129/64
== END 2021-09-11 14:21 | disposition home or self-care (01) ==
LOC: ED 12:45 → ED-I 14:42 → ED 15:03 → MS2 15:04
PROVIDERS: Family Medicine; Nurse Practitioner; ADMIT Internal Medicine; ATTEND Internal Medicine
DX: E86.0 Dehydration (principal); U07.1 COVID-19; I10 Essential (primary) hypertension; E11.9 Type 2 diabetes mellitus without complications; I25.10 Atherosclerotic heart disease of native coronary artery without angina pectoris; E78.5 Hyperlipidemia, unspecified; Z79.4 Long term (current) use of insulin; Z79.84 Long term (current) use of oral hypoglycemic drugs; Z98.61 Coronary angioplasty status
CPT/HCPCS: J1650

== ENCOUNTER 2023-02-01 13:49 | Emergency (ER) | payer MEDICARE ==
[2023-02-01] VITALS (11 sets, daily range): BP systolic 125–160; BP diastolic 72–93
[~2023-02-01] VITALS: Ht 162.6 cm; Wt 63.0 kg
[~2023-02-01 13:49] MED LIST changes: +JARDIANCE25 MG PO; +LATANOPROST0.005 % OU; +METFORMIN HCL1000 MG PO; +NAPROXEN500 MG PO; -NIFEDIPINE60 M1 PO; +NIFEDIPINE90 M1 PO; +TIMOLOL MALEATE0.5 % OU; +VALACYCLOVIR HYD1 GM PO
[2023-02-01 16:43] LABS: BASO% 0.5 % (0-3); EOS% 1.2 % (0-8); HEMATOCRIT 38.9 % (37.0-47.0); HEMOGLOBIN 12.6 g/dl (12.0-16.0); IMMATURE GRANULOCYTES 0.3 % (0.0-5.0); LYMPH% 29.2 % (15-41); MEAN CORPUSCULAR HGB 28.5 pG CALC (26.0-32.0); MEAN CORPUSCULAR HGB CONC 32.4 g/dL CAL (32.0-36.0); MONO% 9.9 % (2-13); NEUT# 3.86 thou/uL (2.00-7.15); NEUT% 58.9 % (42-76); RED BLOOD COUNT 4.42 mill/uL (4.20-5.60); RED CELL DISTRI WIDTH 15.7 % (11.5-15.5)
[2023-02-01 17:03] LABS: INTERNATIONAL NORMALIZED RATIO 1.1 RATIO (0.7-1.3); PROTHROMBIN TIME 10.3 SECONDS (9.0-12.5)
[2023-02-01 17:05] LABS: ALKALINE PHOSPHATASE 73 u/l (38-126); ANION GAP 15 (6-22 (CALC)); BILIRUBIN, TOTAL 0.4 mg/dL (0.02-1.3); BUN 31 mg/dL (8-23); BUN/CREATININE RATIO 35 (12-20 (CALC)); CARBON DIOXIDE 24 mmol/l (22-30); CHLORIDE 104 mmol/l (95-108); CREATININE 0.9 mg/dL (0.5-1.0); GFR FOR AFR.AMER. > 60 ML/MIN (>=60 (CALC)); GFR OTHER RACES > 60 ML/MIN (>=60 (CALC)); SGOT/AST 30 u/l (9-36); SODIUM 138 mmol/l (137-146); TOTAL PROTEIN 7.6 g/dL (6.3-8.2)
[2023-02-02 01:24] VITALS: BP 154/78
== END 2023-02-01 22:55 | disposition short-term general hospital (02) ==
LOC: ED 13:49
PROVIDERS: Family Medicine
DX: K50.911 Crohn's disease, unspecified, with rectal bleeding (principal); K57.31 Diverticulosis of large intestine without perforation or abscess with bleeding; I10 Essential (primary) hypertension; E11.9 Type 2 diabetes mellitus without complications; Z79.84 Long term (current) use of oral hypoglycemic drugs
CPT/HCPCS: Q9967

== ENCOUNTER 2023-09-28 07:13 | Emergency (ER) | payer MEDICARE ==
[~2023-09-28] VITALS: Ht 162.6 cm; Wt 65.0 kg
[2023-09-28] VITALS (24 sets, daily range): BP systolic 135–202; BP diastolic 75–118
[~2023-09-28 07:13] MED LIST changes: +BENAZEPRIL HYDR40 MG PO; +GABAPENTIN100 MG PO; +LANTUS100 UNIT SC; +NOVOLOG100 UNIT PO
[2023-09-28] MEDS ORDERED: SODIUM CHLORIDE 0.9% 1,000 ML IV ONE (07:20)
[2023-09-28] MEDS ORDERED: METOPROLOL TARTRATE 5 MG/5 ML VIAL IV ONE (07:30)
[2023-09-28 07:41] LABS: BASO% 0.4 % (0-3); EOS% 2.8 % (0-8); HEMATOCRIT 42.6 % (37.0-47.0); HEMOGLOBIN 13.4 g/dl (12.0-16.0); IMMATURE GRANULOCYTES 0.3 % (0.0-5.0); LYMPH% 28.6 % (15-41); MEAN CELL VOLUME 88.6 fL CALC (80.0-100.0); MEAN CORPUSCULAR HGB 27.9 pG CALC (26.0-32.0); MEAN CORPUSCULAR HGB CONC 31.5 g/dL CAL (32.0-36.0); MONO% 9.3 % (2-13); NEUT# 4.54 thou/uL (2.00-7.15); NEUT% 58.6 % (42-76); RED BLOOD COUNT 4.81 mill/uL (4.20-5.60); RED CELL DISTRI WIDTH 16.6 % (11.5-15.5)
[2023-09-28 07:55] LABS: ALBUMIN 4.2 g/dL (3.2-5.0); CREATININE 1.1 mg/dL (0.5-1.0); POTASSIUM 3.5 mmol/l (3.5-5.1); TOTAL PROTEIN 8.1 g/dL (6.3-8.2)
[2023-09-28 07:56] LABS: BILIRUBIN, TOTAL 0.8 mg/dL (0.02-1.3)
[2023-09-28] MEDS ORDERED: cloNIDine HCL 0.1 MG/TAB PO ONE (09:55)
[2023-09-28] MEDS ORDERED: MAXZIDE-25MG1 COMBO PO (10:12)
[2023-09-28] MEDS ORDERED: LATANOPROST0.005 % OP (10:13)
[2023-09-28] MEDS ORDERED: NAPROXEN500 MG PO (10:15)
[2023-09-28] MEDS ORDERED: lipozene PO (10:15)
[2023-09-28] MEDS ORDERED: DORZOLAMIDE HCL2 % OP (10:15)
== END 2023-09-28 14:43 | disposition short-term general hospital (02) ==
LOC: ED 07:13
PROVIDERS: Family Medicine
DX: I25.110 Atherosclerotic heart disease of native coronary artery with unstable angina pectoris (principal); I10 Essential (primary) hypertension; E11.9 Type 2 diabetes mellitus without complications; E78.00 Pure hypercholesterolemia, unspecified; Z98.61 Coronary angioplasty status; Z79.84 Long term (current) use of oral hypoglycemic drugs
CPT/HCPCS: Q9967

== ENCOUNTER 2024-04-23 15:01 | Emergency (ER) | payer MEDICARE ==
[~2024-04-23] VITALS: Ht 162.6 cm; Wt 65.0 kg
[~2024-04-23 15:01] MED LIST changes: +DORZOLAMIDE HCL2 % OP; +LATANOPROST0.005 % OP; +MAXZIDE-25MG1 COMBO PO; +lipozene PO
[2024-04-23] MEDS ORDERED: ASPIRIN 81 MG/TAB PO ONE (15:20)
[2024-04-23 15:34] LABS: BASO% 0.3 % (0-3); EOS% 0.6 % (0-8); HEMATOCRIT 44.9 % (37.0-47.0); HEMOGLOBIN 14.4 g/dl (12.0-16.0); IMMATURE GRANULOCYTES 0.1 % (0.0-5.0); MEAN CORPUSCULAR HGB 28.9 pG CALC (26.0-32.0); MEAN CORPUSCULAR HGB CONC 32.1 g/dL CAL (32.0-36.0); MONO% 6.4 % (2-13); NEUT# 4.88 thou/uL (2.00-7.15); NEUT% 69.6 % (42-76); RED BLOOD COUNT 4.99 mill/uL (4.20-5.60); RED CELL DISTRI WIDTH 14.5 % (11.5-15.5)
[2024-04-23 15:49] LABS: ALBUMIN 4.6 g/dL (3.2-5.0); BILIRUBIN, TOTAL 0.7 mg/dL (0.02-1.3); CREATININE 1.4 mg/dL (0.5-1.0); POTASSIUM 3.2 mmol/l (3.5-5.1); TOTAL PROTEIN 9.1 g/dL (6.3-8.2)
[2024-04-23 16:01] LABS: ACT PARTIAL THROMBO TIME 26.1 SECONDS (20.0-32.5)
[2024-04-23] MEDS ORDERED: SODIUM CHLORIDE 0.9% 1,000 ML IV ONE (16:15)
[2024-04-23] MEDS ORDERED: POTASSIUM CHLORIDE 20 MEQ/TAB PO ONE (16:15)
[2024-04-23 18:09] LABS: URINE BILIRUBIN - DIPSTICK Negative (NEGATIVE); URINE BLOOD DIPSTICK Negative (NEGATIVE); URINE COLOR Yellow; URINE GLUCOSE - DIPSTICK 500 mg/dL (NEGATIVE); URINE KETONE Negative (NEGATIVE); URINE LEUK ESTERASE Trace (NEGATIVE); URINE NITRITE - DIPSTICK Negative (Negative); URINE PROTEIN - DIPSTICK Negative (NEG-TRACE); URINE UROBILINOGEN - DIPSTICK 0.2 E.U./dL (0.2)
[2024-04-23 21:15] VITALS: BP 117/70
== END 2024-04-23 21:15 | disposition short-term general hospital (02) ==
LOC: ED 15:01
PROVIDERS: Nurse Practitioner Family
DX: R79.89 Other specified abnormal findings of blood chemistry (principal); R94.31 Abnormal electrocardiogram [ECG] [EKG]; N17.9 Acute kidney failure, unspecified; E86.0 Dehydration; I48.91 Unspecified atrial fibrillation; I10 Essential (primary) hypertension; E78.00 Pure hypercholesterolemia, unspecified